=== PATIENT | female | born 1995 | race Two or more races ===

== ENCOUNTER → 2020-03-07 09:10 | Outpatient (CLI) | payer BC, SELFPAY ==
--- NOTE | 2020-03-07 09:15 | US_ITS ---
PROCEDURE: US ABDOMEN LIMITED CLINICAL INDICATION: RT UPPER QUAD ABD PAIN Diarrhea after eating COMPARISON: No exams were available for comparison FINDINGS: PANCREAS: Unremarkable. No obvious mass or abnormal fluid collection. No ductal dilatation LIVER: No focal liver lesions demonstrated. Homogeneous echogenicity. No intrahepatic biliary ductal dilatation evident. There is appropriate direction of blood flow within a non dilated portal vein RIGHT KIDNEY: Unremarkable. Normal size and echogenicity. No hydronephrosis GALLBLADDER: Cholelithiasis. No gallbladder wall thickening pericholecystic fluid or biliary dilatation. Common bile is 2 mm in diameter IMPRESSION: Cholelithiasis otherwise negative Dictated by: Forrest Crowley MD 03/07/2020 18:59 Forrest Crowley MD in [facility] 03/07/2020 18:59
== END ==
PROVIDERS: PCP Nurse Practitioner; Visit Provider Nurse Practitioner
DX: R10.11 Right upper quadrant pain (principal)
CPT/HCPCS: 76705

== ENCOUNTER 2021-03-18 02:25 | Emergency (ER) | payer BC, SELFPAY ==
[2021-03-18 02:27] VITALS: BP 130/88; PULSE 125; RESP 18; TEMP 36.9; O2SAT 98; BMI 35.9
--- NOTE | 2021-03-18 02:44 | XR_ITS ---
PROCEDURE INFORMATION: Exam: XR Chest Exam date and time: 03/18/2021 2:44 AM Age: 25 years old Clinical indication: Shortness of breath; Patient HX: PT had covid in February still feel bad; Additional info: SOA TECHNIQUE: Imaging protocol: XR of the chest. Views: 2 views. COMPARISON: No relevant prior studies available. FINDINGS: Lungs: No consolidation. Pleural spaces: No significant pleural effusion. No pneumothorax. Heart/Mediastinum: No cardiomegaly. Bones/joints: No displaced fracture. Soft tissues: Unremarkable. Intraperitoneal space: Surgical clips within RIGHT upper quadrant. IMPRESSION: No definite acute cardiopulmonary disease.
--- NOTE | 2021-03-18 02:44 | CT_ITS ---
PROCEDURE INFORMATION: Exam: CTA Chest With Contrast Exam date and time: 03/18/2021 2:44 AM Age: 25 years old Clinical indication: Shortness of breath; Patient HX: SOB PT had covid in February still feels bad; Additional info: SOA TECHNIQUE: Imaging protocol: Computed tomographic angiography of the chest with contrast. 3D rendering (Not supervised by radiologist): MIP and/or 3D reconstructed images were created by the technologist. Radiation optimization: All CT scans at this facility use at least one of these dose optimization techniques: automated exposure control; mA and/or kV adjustment per patient size (includes targeted exams where dose is matched to clinical indication); or iterative reconstruction. Contrast material: ISOVUE 370; Contrast volume: 70 ml; Contrast route: INTRAVENOUS (IV); COMPARISON: CR XR CHEST 2V 03/18/2021 3:13 AM FINDINGS: Pulmonary arteries: No pulmonary embolism. Aorta: Unremarkable. No aneurysm. Lungs: Scattered minimal patchy/nodular airspace disease within LEFT lower lobe. Pleural spaces: No significant pleural effusion. No pneumothorax. Heart: No cardiomegaly. No pericardial effusion. Lymph nodes: No pathologically enlarged lymph nodes. Bones/joints: No acute fracture. Soft tissues: Unremarkable. Upper abdomen: See abdomen CT report for additional details. IMPRESSION: 1. No CT evidence of pulmonary embolism. 2. Probable LLL pneumonia. Followup to resolution to exclude underlying pathology.
[2021-03-18 02:48] LABS: Microscopic, Urine URINE MICROSCOPIC (MICROSCOPIC)
[2021-03-18 02:57] LABS: Basophils # 0.2 K/mm3 (0-0.2); Basophils % 2.2 % (0.1-2.0); Eosinophils # 0.6 K/mm3 (0.0-0.4); Eosinophils % 5.8 % (0.1-12.0); Hematocrit 43.4 % (37.0-47.0); Hemoglobin 14.1 g/dL (12.2-16.2); Lymphocytes # 4.2 K/mm3 (0.7-4.5); Lymphocytes % 40.2 % (10-50); Mean Corpuscular HGB Conc 32.4 g/dL (31.8-35.4); Mean Corpuscular Hemoglobin 28.7 pg (27.0-31.2); Mean Corpuscular Volume 88.4 fl (81-99); Mean Platelet Volume 8.6 fl (7.4-10.4); Monocytes # 0.5 K/mm3 (0.1-1.0); Neutrophils # 4.9 K/mm3 (1.8-7.8); Neutrophils % 46.8 % (37.0-80.0); Platelet Count 427 K/mm3 (142-424); Red Blood Count 4.91 M/mm3 (4.20-5.40); Red Cell Distribution Width 14.2 % (11.5-17.5); White Blood Count 10.5 K/mm3 (4.8-10.8)
--- NOTE | 2021-03-18 02:57 | CT_ITS ---
PROCEDURE INFORMATION: Exam: CT Abdomen And Pelvis With Contrast Exam date and time: 03/18/2021 2:57 AM Age: 25 years old Clinical indication: Vomiting; Prior surgery; Surgery date: 6+ months; Surgery type: Gb; Additional info: Vomitting TECHNIQUE: Imaging protocol: Computed tomography of the abdomen and pelvis with contrast. Radiation optimization: All CT scans at this facility use at least one of these dose optimization techniques: automated exposure control; mA and/or kV adjustment per patient size (includes targeted exams where dose is matched to clinical indication); or iterative reconstruction. Contrast material: ISOVUE; Contrast volume: 75 ml; Contrast route: IV; COMPARISON: US ABDOMEN LIMITED 03/07/2020 9:29 AM FINDINGS: Lower thorax: See chest CT report for additional details. Liver: Unremarkable. Gallbladder and bile ducts: Cholecystectomy. No significant ductal dilation. Pancreas: Unremarkable. No ductal dilation. Spleen: No splenomegaly. Adrenal glands: No mass. Kidneys and ureters: Unremarkable. No significant hydronephrosis. Stomach and bowel: No definite mural thickening. No obstruction. Appendix: Normal caliber. No inflammation. Intraperitoneal space: No significant fluid collection. No definite free air. Vasculature: Unremarkable. No aneurysm. Lymph nodes: No pathologically enlarged lymph nodes. Urinary bladder: Unremarkable. Reproductive: Unremarkable as visualized. Bones/joints: No acute fracture. Soft tissues: Unremarkable. IMPRESSION: No definite acute intraabdominal abnormality.
--- NOTE | 2021-03-18 02:59 | [facility].EDSOB ---
ED Disposition Clinical Impression: Community acquired pneumonia Qualifiers: Laterality: left Lung location: lower lobe of lung Qualified Code(s): J18.9 - Pneumonia, unspecified organism Gastritis Qualifiers: Gastritis type: unspecified gastritis Chronicity: acute Gastritis bleeding: without bleeding Qualified Code(s): K29.00 - Acute gastritis without bleeding Disposition: Home, Self-Care Condition on Discharge: Good Instructions: DI for Shortness of Breath Additional Instructions: use meds and see pcp for follow up Prescriptions: levoFLOXacin [Levaquin 500mg tab] 500 mg PO DAILY #7 tab Transmission Status: Pending to [facility] predniSONE [Prednisone 20mg Tab] 20 mg PO BID #10 tab Transmission Status: Pending to [facility] Ondansetron [Zofran 4mg ODT] 4 mg PO TIDP PRN #21 tab PRN Reason: Nausea And Vomiting Transmission Status: Pending to [facility] Referrals: Marielena Jaime APRN [Primary Care Provider] - - Critical Care Critical Care Time: No Attestation: On 03/18/21, the high probability of a clinically significant, sudden or life threatening deterioration of the following system(s) required my full and direct attention, intervention and personal management. The time I documented below is in addition to time spent performing reported procedures but includes the following listed in this critical care notation. Medical Decision Making - Medical Records Medical records reviewed: Yes: I reviewed the patient's medical records. - Darryn Inquiry Pt receiving controlled substance: No Vital Signs: 03/18/21 02:27 Temperature 98.4 F Temperature Source Oral Pulse Rate [Right] 125 H Respiratory Rate 18 Blood Pressure [Right Arm] 130/88 Blood Pressure Mean [Right Arm] 102 02 Sat by Pulse Oximetry 98 - Lab Data Lab results reviewed: Yes: I reviewed the patient's lab results. Lab Results 03/18/21 02:36: Urine Color Yellow, Urine Appearance Sl cloudy, Urine pH 6.0, Ur Specific [place] 1.010, Urine Protein Negative, Urine Glucose (UA) Negative, Urine Ketones Negative, Urine Blood Negative, Urine Nitrate Negative, Urine Bilirubin Negative, Urine Urobilinogen 0.2, Ur Leukocyte Esterase Negative, Urine WBC Occasional, Ur Squamous Epith Cells 5-10, Urine Bacteria 2+ 03/18/21 02:36: Urine HCG, Qual Negative 03/18/21 02:40: WBC 10.5, RBC 4.91, Hgb 14.1, Hct 43.4, MCV 88.4, MCH 28.7, MCHC 32.4, RDW 14.2, Plt Count 427 H, MPV 8.6, Neut % (Auto) 46.8, Lymph % (Auto) 40.2, Bland % (Auto) 5.0, Eos % (Auto) 5.8, Baso % (Auto) 2.2 H, Neut # (Auto) 4.9, Lymph # (Auto) 4.2, Bland # (Auto) 0.5, Eos # (Auto) 0.6 H, Baso # (Auto) 0.2, ESR 38 H 03/18/21 02:40: Sodium 136, Potassium 3.7, Chloride 101, Carbon Dioxide 28, Anion Gap 10.7, BUN 6 L, Creatinine 0.80, Estimated Creat Clear 161, Estimated GFR 87, Est GFR ( Amer) 106, Glucose 105 H, Calcium 9.4, Total Bilirubin 0.4, AST 51 H, ALT 44, Alkaline Phosphatase 120, C-Reactive Protein 37.5 H, Total Protein 8.2, Albumin 4.6, Globulin 3.6 H, Albumin/Globulin Ratio 1.3 03/18/21 02:40: Amylase 64, Lipase 45 Result diagrams: 03/18/21 02:40 03/18/21 02:40 Orders (Tests/Meds): ED MEDICATIONS Generic Name Dose Route Start Last Admin Trade Name Freq PRN Reason Stop Dose Admin Sodium Chloride 1,000 mls @ 999 mls/hr 03/18/21 02:45 03/18/21 03:00 Sod Chlor 0.9% 1000ml Bag IV 03/18/21 03:45 999 mls/hr .Q1H1M EDITH Administration Sodium Chloride 8 ml 03/18/21 03:00 Sodium Chloride 0.9% 10ml Vial IV 04/17/21 02:59 NEEDED PRN dilute pepcid Discontinued Medications Generic Name Dose Route Start Last Admin Trade Name Freq PRN Reason Stop Dose Admin Dexamethasone Sodium Phosphate 10 mg 03/18/21 02:44 03/18/21 03:04 Dexamethasone 4mg/Ml 5ml Mdv IV 03/18/21 02:45 10 mg ONCE ONE Administration Famotidine 20 mg 03/18/21 03:00 03/18/21 03:05 Famotidine 20mg/2ml Vial IV 03/18
[2021-03-18 03:00] LABS: Appearance,Urine SL CLOUDY (Clear); Bilirubin,Urine Negative (Negative); Blood, Urine Negative (Negative); Color,Urine YELLOW (Yellow); Glucose,Urine (UA) Negative (Negative); Ketones,Urine Negative (Negative); Leukocyte Esterase,Urine Negative (Negative); Nitrate,Urine Negative (Negative); Protein,Urine Negative (Negative); Urine Pregnancy, HCG Qual. Negative (Negative); Urobilinogen,Urine 0.2 EU/dl (0.2)
[2021-03-18 03:12] LABS: Adenovirus,PCR Not Detected (NotDetected); Bordetella Pertussis Not Detected (NotDetected); Chlamydophila Pneumoniae, PCR Not Detected (NotDetected); Coronavirus 229E Not Detected (NotDetected); Coronavirus NL63 Not Detected (NotDetected); Coronavirus OC43 Not Detected (NotDetected); Coronovirus HKU1,PCR Not Detected (NotDetected); Influenza A, PCR Not Detected (NotDetected); Influenza AH1, 2009 Not Detected (NotDetected); Influenza AH1, PCR Not Detected (NotDetected); Influenza AH3,PCR Not Detected (NotDetected); Influenza B, PCR Not Detected (NotDetected); Mycoplasma Pneumoniae, PCR Not Detected (NotDetected); Parainfluenza 1, PCR Not Detected (NotDetected); Parainfluenza 2, PCR Not Detected (NotDetected); Parainfluenza 3, PCR Not Detected (NotDetected); Parainfluenza 4, PCR Not Detected (NotDetected); Respiratory Syncytial Virus Not Detected (NotDetected); Rhinovirus/Enterovirus Not Detected (NotDetected)
[2021-03-18 03:16] LABS: Chloride 101 mmol/L (98-107)
[2021-03-18 03:17] LABS: Potassium 3.7 mmoL/L (3.5-5.1); Sodium 136 mmol/L (136-145)
[2021-03-18 03:19] LABS: Alanine Aminotransferase 44 U/L (12-78); Alkaline Phosphatase 120 U/L (38-126); Aspartate Amino Transferase 51 U/L (14-36); Bilirubin,Total 0.4 mg/dl (0.2-1.3); Blood Urea Nitrogen 6 mg/dl (7-17); Creatinine Clearance Estimated 161 mL/min (50-200); Estimated Glomerular Filt Rate 87 ml/min (>60); GFR (African American) 106 ML/MIN (>60)
[2021-03-18 03:20] LABS: Bacteria,Urine 2+ /lpf; WBC,Urine Occasional #/hpf (0-3)
[2021-03-18 03:20] LABS: Albumin Level 4.6 g/dl (3.5-5.0); Albumin/Globulin Ratio 1.3 (1.1-1.8); Amylase 64 U/L (30-110); Anion Gap 10.7 mEq/L (5-15); Calcium 9.4 mg/dl (8.4-10.2); Carbon Dioxide 28 mmol/L (22.0-30.0); Globulin 3.6 g/dL (1.3-3.2); Glucose 105 mg/dl (74-100); Total Protein,Serum 8.2 g/dl (6.3-8.2)
[2021-03-18 03:21] LABS: Lipase 45 U/L (23-300)
[2021-03-18 03:25] LABS: C-Reactive Protein 37.5 mg/L (0-4)
[2021-03-18 03:47] LABS: Erythrocyte Sedimentation Rate 38 mm/hr (0-20)
[2021-03-18 04:23] LABS: Procalcitonin 0.114 ng/mL (0.0-2.0)
[2021-03-18 04:40] VITALS: BP 124/85; PULSE 80; RESP 18; TEMP 36.9; O2SAT 98
[2021-03-18 05:11] LABS: Coronavirus 19, PCR Detected (NotDetected); Human Metapneumovirus Detected (NotDetected)
== END 2021-03-18 04:55 | disposition home or self-care (01) ==
PROVIDERS: Emergency Provider Emergency Medicine; PCP Nurse Practitioner
DX: J18.9 Pneumonia, unspecified organism (principal); K29.00 Acute gastritis without bleeding; F41.9 Anxiety disorder, unspecified; Z20.822 Contact with and (suspected) exposure to COVID-19
CPT/HCPCS: 71046; 71275; 74177; 80053; 81001; 81025; 82150; 83690; 84145; 85025; 85651; 86140; 87086; 87581; 87632; 87798; 96365; 96375; 99283; C9803; J2405; Q9967; U0003; U0005